=== PATIENT | female | born 1945 | race Caucasian/White ===

== ENCOUNTER 2018-04-21 04:21 | Emergency (ER) | payer MEDICARE, OTHER, SELFPAY ==
[2018-04-21 04:32] VITALS: BP 210/98; PULSE 94; RESP 16; TEMP 36.9; O2SAT 98; BMI 22.4
--- NOTE | 2018-04-21 04:43 | PC.NURSE ---
pt states last void 7am yesterday, 21hrs ago, and that void was dark. pt report Hx of dribbling and is seeing a urologist for that. pt reports being unable to sit due to pain from bladder. pt denies other discomfort, n,v,d.
--- NOTE | 2018-04-21 04:43 | ED.FEMALEGU ---
HPI - Female Genitourinary General Chief complaint: Urogenital-Female Stated complaint: unable to urinate since yesterday morning Time Seen by Provider: 04/21/18 04:27 Source: patient Mode of arrival: ambulatory Limitations: no limitations History of Present Illness HPI Narrative: 72-year-old female with a history of bladder control problems presents to the emergency department with a chief complaint of significant suprapubic tenderness and inability to urinate since yesterday. She denies any history of the same. She has no back pain or lower extremity numbness, tingling or weakness. She denies any trouble controlling her bowels. She denies the use of pain medicines or any recent surgical procedures. She has been on Flomax and Ditropan for quite some time as prescribed by a urologist for trouble with ?dribbling?. Onset (ago): hour(s) Location: suprapubic Female Urogenital Radiation: Non-Radiating and Suprapubic Severity: severe Severity scale (1-10): 10 Quality: Aching Duration: constant Relieving factors: none Exacerbating factors: movement Urinary symptoms: Difficulty Urinating Associated symptoms: denies other symptoms Related Data Allergies Allergy/AdvReac Type Severity Reaction Status Date / Time No Known Drug Allergies Allergy Verified 04/21/18 04:38 Review of Systems Review of Systems All systems reviewed & are unremarkable except as noted in HPI and below Constitutional Denies chills, Denies fever(s), Denies lethargy and Denies weakness Eyes Denies change in vision, Denies eye discharge, Denies irritation and Denies loss of vision ENT Ears, Nose, Mouth, and Throat: Denies change in voice, Denies neck pain and Denies sore throat Cardiovascular Denies chest pain, Denies irregular heart rhythm, Denies lightheadedness, Denies palpitations, Denies dyspnea, Denies dyspnea on exertion and Denies orthopnea Respiratory Denies cough, Denies dyspnea, Denies dyspnea on exertion and Denies wheezing Gastrointestinal Gastrointestinal: Denies abdominal pain, Denies change in bowel habits, Denies diarrhea, Denies nausea and Denies vomiting Genitourinary Denies hematuria, Denies flank pain, Denies urinary incontinence and Denies urinary urgency Comments: Urinary retention Musculoskeletal Denies neck pain Integumentary/Breasts Denies pruritus, Denies erythema, Denies rash and Denies wounds Neurologic Denies confusion, Denies loss of vision and Denies weakness Psychiatric Denies anxiety, Denies confusion, Denies depression, Denies homicidal ideation and Denies suicidal ideation Endocrine Denies palpitations Hematologic/Lymphatic Denies easy bruising Allergic/Immunologic Denies wheezing PFSH Medical History Hyperlipidemia (Acute) Hypothyroid (Acute) Urinary incontinence (Acute) Social History Smoking Status: Never smoker Exam Narrative Exam Narrative: GEN: AOx3 and in moderate distress, complaining of suprapubic tenderness the EYES: Pupils are equal, round, and reactive to light and accommodation. Extraoccular muscles are intact bilaterally. There is no subconjunctival hemorrhage or exudate. CHEST: Lungs are clear to auscultation bilaterally and free of wheezes, rales, or rhonchi. Heart rate is regular rhythm, there are no murmurs, clicks, rubs, or gallops. There is no chest wall tenderness. ABD: Abdomen is soft but moderately tender in the suprapubic region with mild distention. There is no guarding or rebound. Bowel sounds are normal in all 4 quadrants. There is no mass or organomegaly. EXT: Full painless ROM of all extremities with no loss of sensation or strength. SKIN: Warm, pink, and dry. No erythema or rash Initial Vital Signs Initial Vital Signs: Vital Signs Temperature 98.4 F 04/21/18 04:32 Pulse Rate 94 H 04/21/18 04:32 Respiratory Rate 16 04/21/18 04:32 Blood Pressure 210/98 H 04/21/18 04:32 Pulse Oximetry 98 04/21/18 04:32 Course Reevaluation(s) Reevaluation #1: Bladder scan notes greater than 999 mL [place] placed Vital Signs - 8 hr 04/21/18 04:32 Temperature 98.4 F Pulse Rate 94 H Respiratory Rate 16 Blood Pressure 210/98 H Pulse Oximetry 98 MDM - Female Genitourinary Lab Data Lab Results 04/21/18 Range/Units 05:10 Urine Color Yellow Urine Appearance Sl cloudy Urine pH 6.5 (4.5-8.0) Ur Specific [place] 1.010 (1.000-1.035) Urine Protein Negative (Negative) Urine Glucose (UA) Negative (Normal) g/dL Urine Ketones Negative (NEGATIVE) Urine Occult Blood Negative (Negative) Urine Nitrate Negative (Negative) Urine Bilirubin Negative (NEGATIVE) Urine Urobilinogen 0.2 (0.2) E.U./dL Ur Leukocyte Esterase Negative (NEGATIVE) Urine RBC None seen (0-5/HPF) Urine WBC 1-5/hpf (0-5/HPF) Ur Squamous Epith Cells None seen Urine Bacteria Many (>30) H (None) Ur Culture Indicated? Specimen cultured Micro UA Comment Not Reportable Discharge Plan Departure Patient Disposition: Home Clinical Impression: Acute retention of urine Discharge Date/Time: 04/21/18 06:17 Interventions: ED Discharge Assessment Last Done: 04/21/18 06:17 Instructions: DI for Urinary Retention in Women Activity Restrictions/Additional Instructions: *You have been diagnosed with [ acute urinary retention ] *What to do: * continue to take medications as previously prescribed, except STOP TAKING DITROPAN *Follow up with your urologist r in 2-3 days, call for an appointment. Let them know you were seen in the Emergency Department and that we ask that you be seen in follow up *Return to ER if you should have any new, worsening or concerning symptoms
[2018-04-21 05:18] LABS: RBC Urine None Seen (0-5/HPF)
[2018-04-21 05:19] LABS: Appearance Urine UA SL CLOUDY; Bilirubin Urine UA NEGATIVE (NEGATIVE); Color Urine UA YELLOW; Glucose Urine UA NEGATIVE (Normal); Ketones Urine UA NEGATIVE (NEGATIVE); Leukocyte Esterase Urine UA NEGATIVE (NEGATIVE); Nitrite Urine UA Negative (Negative); Occult Blood Urine UA NEGATIVE (Negative); Protein Urine UA NEGATIVE (Negative); Urobilinogen Urine UA 0.2 E.U./dL (0.2); pH Urine UA 6.5 (4.5-8.0)
[2018-04-21 05:43] LABS: Bacteria Urine Many (>30); Culture Indicated Urine Specimen Cultured; Squamous Epithelial Cell Urine None Seen; WBC Urine 1-5/HPF (0-5/HPF)
[2018-04-21 05:57] VITALS: BP 165/80; PULSE 78; RESP 16; O2SAT 93
== END 2018-04-21 06:17 | disposition home or self-care (01) ==
PROVIDERS: Emergency Provider Emergency Medicine
DX: R33.9 Retention of urine, unspecified (principal)
CPT/HCPCS: 51701; 81001; 87077; 87086; 87186; 99283